=== PATIENT | female | born 1960 | race Two or more races ===

== ENCOUNTER 2019-01-21 17:06 | Emergency (ER) | payer MEDICAID ==
[~2019-01-21] VITALS: Ht 157.5 cm; Wt 65.3 kg
[2019-01-21 17:10] VITALS: BP 147/95
--- NOTE | 2019-01-21 17:26 | Emergency Room Report ---
History of Present Illness General Chief Complaint: Laceration Source: Patient Present Illness HPI 58-year-old female presents to the emergency department complaining of laceration to the right lower leg sustained by a large piece of glass earlier today. Patient denies taking blood thinning medications she denies being up-to- date with her tetanus vaccination. Patient reports she is prediabetic and has a history of high blood pressure. Patient denies bleeding at this time she is very worried about what the scar will look like. Patient reports pain is 6 out of 10 severity and is burning in nature. No other aggravating or relieving factors at this time. Allergies: Coded Allergies: No Known Allergies (Unverified , 01/21/19) Patient History Past Medical History: see triage record Past Surgical History: none Pertinent Family History: none Now: No Reviewed Nursing Documentation: PMH: Agreed; PSxH: Agreed Nursing Documentation-PMH Past Medical History: No History, Except For Hx Hypertension: Yes History Of Psychiatric Problem: Yes Review of Systems All Other Systems: negative except mentioned in HPI Physical Exam Vital Signs Date Time Temp Pulse Resp B/P (MAP) Pulse Ox O2 Delivery O2 Flow Rate FiO2 01/21/19 17:10 98.2 80 20 147/95 (112) 96 Room Air Sp02 EP Interpretation: reviewed, normal General Appearance: no apparent distress, alert, GCS 15, non-toxic Head: normocephalic, atraumatic Eyes: bilateral eye normal inspection, bilateral eye PERRL ENT: hearing grossly normal, normal voice Neck: full range of motion Respiratory: lungs clear, normal breath sounds, speaking full sentences Cardiovascular #1: regular rate, rhythm Cardiovascular #2: 2+ dorsalis pedis (R) - posterior tibial Musculoskeletal: back normal, gait/station normal, normal range of motion, non- tender Neurologic: alert, oriented x3, responsive, motor strength/tone normal, sensory intact, normal gait, speech normal, grossly normal Psychiatric: judgement/insight normal Skin: laceration - superficial non-gaping laceration of the lateral right calf/ lopez. No bleeding at this time. NVI distally to injury. laceration is approximately 5cm in length. Procedures Laceration/Wound Repair Laceration/Wound Repair : Consent: Verbal Wound Location: lower extremity - right lopez/calf Wound's Depth, Shape: superficial Wound Length (cm): 5 Wound Explored: clean Irrigated w/ Saline (ccs): 100 Wound Repaired With: Dermabond Layer Closure?: No Sterile Dressing Applied?: Yes Splint Applied?: No Sling Applied?: No Patient Tolerated: Well Complications: None Medical Decision Making PA Attestation Dr. Richard Is my supervising Physician whom patient management has been discussed with. Diagnostic Impression: Primary Impression: Superficial laceration ER Course 58-year-old female presents to the emergency department complaining of laceration to the right lower leg sustained by a large piece of glass earlier today. Patient denies taking blood thinning medications she denies being up-to- date with her tetanus vaccination. Patient reports she is prediabetic and has a history of high blood pressure. Patient denies bleeding at this time she is very worried about what the scar will look like. Patient reports pain is 6 out of 10 severity and is burning in nature. No other aggravating or relieving factors at this time. Ddx considered but are not limited to laceration, tendon injury, cellulitis, amputation Vital signs: are WNL, pt. is afebrile H&PE are most consistent with: superficial right lopez/calf laceration approx 5 cm in length ORDERS: none required at this time, the diagnosis is clinical ED INTERVENTIONS: -Tetanus vaccine was administered as pt. vaccination status was unknown. - The wound was copiously irrigated with normal saline, and explored for foreign body for which no FB was found. - The wound was approximated and closed using Dermabond - sterile dressing is applied by paint laboratory technician. Discussed with patient: That we make every effort to approximate the laceration as best as we can so that scarring will be as cosmetically pleasing as possible with our limited cosmetic skill set in the Emergency dept. Regardless of our best efforts there will be scarring after laceration repair. The extent of scarring is unknown at this time. DISCHARGE: At this time pt. is stable for d/c to home. Will provide printed patient care instructions, and any necessary prescriptions. Care plan and follow up instructions have been discussed with the patient prior to discharge. Last Vital Signs Date Time Temp Pulse Resp B/P (MAP) Pulse Ox O2 Delivery O2 Flow Rate FiO2 01/21/19 17:10 98.2 80 20 147/95 (112) 96 Room Air Disposition: HOME, SELF-CARE Condition: Stable Scripts Emollient Combination No.46 (MEDERMA) 20 Gm Cream..g. 1 APPLIC TP QID, #20 GM 2 Refills Prov: Mayra Elena 01/21/19 Patient Instructions: Nonsutured Laceration Care Additional Instructions: Take medications as directed. Follow up with a Primary Care Provider in 3-5 days, even if your symptoms have resolved. --Please review list of primary care clinics, if you do not already have a primary care provider Return sooner to ED if new symptoms occur, or current symptoms become worse. - Please note that this Emergency Department Report was dictated using [employer] or motel cleaning supervisor technology software, occasionally this can lead to erroneous entry secondary to interpretation by the dictation equipment. Mayra Elena Jan 21, 2019 17:26
[2019-01-21] MEDS ORDERED: Tetanus/Diptheria/Pertussis IM ONE (17:30)
[2019-01-21] MEDS ORDERED: Neosporin Oint Ud Pkt TOPIC ONE (17:30)
[2019-01-21] MEDS ORDERED: MEDERMA20 GM TP (17:35)
[2019-01-21 17:59] VITALS: BP 147/95
== END 2019-01-21 17:59 | disposition home or self-care (01) ==
LOC: EMR 17:26
DX: S81.811A Laceration without foreign body, right lower leg, initial encounter (principal); I10 Essential (primary) hypertension; Z23 Encounter for immunization; W25.XXXA Contact with sharp glass, initial encounter; Y92.9 Unspecified place or not applicable
CPT/HCPCS: 12002; 90471; 90715; 99283; Z7502